=== PATIENT | male | born 1950 | race Caucasian/White ===

== ENCOUNTER 2017-11-21 00:55 | Inpatient (IN) | payer MEDICARE ==
[2017-11-21] MEDS ORDERED: NITROGLYCERIN SL TABS 0.4 MG TAB SUBLINGUAL PRN (03:33)
--- NOTE | 2017-11-21 03:41 | ED ---
Syncope HPI - General Chief Complaint: Recheck/Abnormal Lab/Rx Stated Complaint: Chest pain Time Seen by Provider: 11/21/17 00:59 Source: patient Mode of arrival: EMS Limitations: no limitations - History of Present Illness Initial Comments: This patient is a 67-year-old man who was transferred here to be admitted for syncope workup. The patient had been seen at [facility]. He states that he had gone there to be seen for a constellation of symptoms. Things started about 4 days ago now with congestion, cough, and occasional sputum production. He then also had some nausea and was not taking his much to drink as his usual. Today he was not feeling any better and in fact he was lightheaded and had 3 episodes in which she passed out. The patient has not had chest pain. When the patient went to the other hospital he was initially found to be tachycardic. MD Complaint: loss of consciousness Onset/Timin -: days(s) Prodromal Symptoms: lightheaded Injuries Sustained Associated with Event: None Current Symptoms: back to baseline Treatments Prior to Arrival: other - Related Data Home Medications Medication Instructions Recorded Confirmed No Known Home Medications 11/21/17 11/21/17 Allergies Allergy/AdvReac Type Severity Reaction Status Date / Time No Known Allergies Allergy Verified 11/21/17 01:11 Review of Systems ROS Statement: Those systems with pertinent positive or pertinent negative responses have been documented in the HPI. ROS Other: All systems not noted in ROS Statement are negative. Constitutional: Reports: weakness (Generalized). Denies: fever, chills Respiratory: Reports: cough, dyspnea Cardiovascular: Reports: syncope. Denies: chest pain, palpitations, orthopnea, edema Gastrointestinal: Denies: abdominal pain, vomiting, diarrhea Genitourinary: Denies: dysuria, hematuria Musculoskeletal: Denies: back pain Skin: Denies: rash Neurological: Denies: headache, weakness, numbness Past Medical History Past Medical History: Hyperlipidemia, Hypertension, Syncope Additional Past Medical History / Comment(s): diverticulitis History of Any Multi-Drug Resistant Organisms: None Reported Past Surgical History: Bowel Resection Past Psychological History: No Psychological Hx Reported Smoking Status: Never smoker Past Alcohol Use History: None Reported Past Drug Use History: None Reported General Exam Limitations: no limitations General appearance: alert, in no apparent distress Head exam: Present: atraumatic, normocephalic Eye exam: Present: normal appearance. Absent: scleral icterus, conjunctival injection ENT exam: Present: mucous membranes dry Neck exam: Present: normal inspection Respiratory exam: Present: normal lung sounds bilaterally. Absent: respiratory distress, wheezes, rales, rhonchi, stridor Cardiovascular Exam: Present: regular rate, normal rhythm, normal heart sounds. Absent: systolic murmur, diastolic murmur, rubs, gallop GI/Abdominal exam: Present: soft. Absent: distended, tenderness, guarding, rebound, mass Extremities exam: Present: normal inspection, normal capillary refill. Absent: pedal edema, calf tenderness Back exam: Present: normal inspection. Absent: CVA tenderness (R), CVA tenderness (L) Neurological exam: Present: alert Skin exam: Present: warm, dry, intact, normal color. Absent: rash Course Vital Signs 11/21/17 11/21/17 11/21/17 01:06 01:14 02:47 Temperature 98.6 F Pulse Rate 105 H 98 Pulse Rate [ 105 H Conference Planner ] Respiratory 17 19 18 Rate Blood Pressure 140/76 153/106 O2 Sat by Pulse 96 95 Oximetry EKG Findings - EKG Results: EKG: interpreted by ERMD, sinus rhythm, normal axis EKG shows: tachycardia (Rate approximately 105 bpm) - Blocks, [place], Hypertrophy, ST Abn: AV and intraventricular conduction: right bundle branch block (fixed/ intermittent, complete/incomplete) - [place], Pacemaker, Normal: Myocardial infarction: inferior [place] (old age indeterminate) Disposition Referrals: None,Stated [Primary Care Provider] - 1-2 days
[2017-11-21 04:54] LABS: Creatine Kinase MB 1.6 ng/mL (0.0-2.4)
[2017-11-21] MEDS ORDERED: LABETALOL SYRINGE 5 MG/ML IVP STA (05:01)
[2017-11-21] MEDS ORDERED: LABETALOL 5 MG/ML VIAL MDV IVP STA (05:04)
[2017-11-21 05:10] LABS: Troponin I 0.063 ng/mL (0.000-0.034)
[2017-11-21 06:09] VITALS: BMI 23.5
[2017-11-21 06:35] LABS: Appearance,Urine Clear (Clear); Bilirubin,Urine Negative (Negative); Blood,Urine Large (Negative); Color,Urine Yellow; Glucose,Urine (UA) Negative (Negative); Hyaline Casts,Urine 11 /lpf (0-2); Ketones,Urine Negative (Negative); Leukocyte Esterase,Urine Negative (Negative); Mucus,Urine Rare /hpf; Nitrite,Urine Negative (Negative); Protein,Urine 1+ (Negative); RBC,Urine >182 /hpf (0-5); Specific Gravity,Urine 1.018 (1.001-1.035); Urobilinogen,Urine <2.0 mg/dL (<2.0); WBC,Urine <1 /hpf (0-5)
[2017-11-21 10:50] LABS: Creatine Kinase MB 1.8 ng/mL (0.0-2.4)
[2017-11-21 10:54] LABS: Troponin I 0.057 ng/mL (0.000-0.034)
[2017-11-21] MEDS: SODIUM CHLORIDE 0.9% 1,000 ML IV SCH ×2 (11:22→19:48)
--- NOTE | 2017-11-21 11:57 | HP ---
HISTORY AND PHYSICAL CHIEF COMPLAINT: Syncopal episode. HISTORY OF PRESENT ILLNESS: This is the first admission for this 67-year-old white male who has been in fairly good health otherwise. He apparently passed out 3 different times and was transferred in from an outside hospital. He is experiencing slight discomfort in the chest, shortness of breath, and he was diaphoretic. He has had no history of heart disease. He has been told that his blood pressure is elevated, but he does not treat. He has also been told he is borderline diabetic. He has had no diarrhea, hematochezia, etc. REVIEW OF SYSTEMS: Otherwise unremarkable and noncontributory. Past medical history, family history, personal and social histories reveal he is not on any medication and not allergic to any. Surgically, he has been treated for diverticulitis. He does not smoke. PHYSICAL EXAM: Blood pressure 156/90 with a pulse of 94, respirations of 35. He is afebrile. GENERAL: He appeared to be well developed, well nourished, no acute distress. Skin color is normal, skin is warm and dry. Lymph nodes not enlarged. Neck veins are not distended. Chest is clear to auscultation and percussion. Cardiac exam is normal. Carotids are normal. Abdomen is soft, nontender and extremities are normal. Neurologically, he is intact. IMPRESSION: 1. Syncopal episodes. 2. History of hypertension. 3. Rule out diabetes. PLAN: 1. Bed rest. 2. IV fluids. 3. Echocardiogram. 4. Hemoglobin A1c. 5. Consult with Cardiology. MMODL / IJN: [id number] /
[2017-11-21] MEDS: METOPROLOL TARTRATE 25 MG TAB PO SCH ×2 (12:41→19:47)
[2017-11-21] MEDS ORDERED: HEPARIN SODIUM,PORCINE 5,000 UNIT/ML 1 ML VIAL IV ONE (13:42)
[2017-11-21] MEDS ORDERED: HEPARIN SODIUM,PORCINE 5,000 UNIT/ML 1 ML VIAL IV PRN ×2 (13:42→20:08)
[2017-11-21] MEDS ORDERED: HEPARIN SOD,PORK IN 0.45% NACL 25,000 UNIT in 0.45% NACL 1 500ML.BAG IV SCH (13:45)
[2017-11-21 13:49] LABS: Basophils % (A) 0 %; Eosinophils # (A) 0.1 k/uL (0-0.7); Eosinophils % (A) 1 %; HCT 41.3 % (39.0-53.0); Hypochromasia Slight; Lymphocytes # (A) 1.4 k/uL (1.0-4.8); Lymphocytes % (A) 20 %; MCH 27.3 pg (25.0-35.0); MCHC 31.5 g/dL (31.0-37.0); MCV 86.7 fL (80.0-100.0); Mean Platelet Volume 8.4; Monocytes # (A) 0.6 k/uL (0-1.0); Monocytes % (A) 9 %; Neutrophils # (A) 4.6 k/uL (1.3-7.7); Neutrophils % (A) 67 %; Platelet Count 177 k/uL (150-450); RBC 4.77 m/uL (4.30-5.90); RDW 13.6 % (11.5-15.5); WBC 6.8 k/uL (3.8-10.6)
[2017-11-21 14:02] LABS: INR 1.1 (<1.2); Partial Thromboplastin Time 23.3 sec (22.0-30.0); Prothrombin Time 10.9 sec (9.0-12.0)
[2017-11-21 14:09] LABS: Calcium 8.7 mg/dL (8.4-10.2); Potassium 4.3 mmol/L (3.5-5.1)
[2017-11-21 14:12] LABS: D-Dimer 11.92 mg/L FEU (<0.60)
--- NOTE | 2017-11-21 14:39 | CONS ---
CONSULTATION Mr. Ravi Theodore is a gentleman who was transferred from [facility] after presenting there with syncope. This gentleman has not seen a physician within a long time. Apparently for the last 3-4 days he has been having nausea, vomiting, has emesis and several episodes of retching. He came into the hospital after having passed out about 3 times. These passing-out spells happened when he was having vomiting or retching and this seems to have been a precipitating factor. EMS while they were transporting him to the emergency room at [facility], he complained of sharp pains in the chest. The pain seemed to be more or less again related to his vomiting and retching. The pain is all gone. He is comfortable, resting. His troponin profile does not suggest any myocardial injury. His emesis and vomiting has also resolved. He was quite dehydrated. He received quite a bit of IV fluid. This morning, he still has orthostatic changes. He does not have any chest discomfort. He feels slightly dizzy and lightheaded when he stands up and there is a blood pressure drop between supine and standing of more than 30 mmHg. He has no other symptoms at this time. PAST MEDICAL HISTORY: Unavailable and unremarkable. Patient has not seen a physician in a long time. He does not take any medications. Patient had some workup with a CT of the spine and head which showed no significant abnormalities. He also had a CT of the chest which revealed some segmental atelectasis, but no significant problems were noted.CT was done without contrast. EKG reveals a sinus mechanism with a right bundle branch block pattern and repolarization abnormality. No acute changes were detected. PHYSICAL EXAMINATION: Blood pressure is 140/70, when standing pressure is about 100 systolic. HEENT: Unremarkable. Fundus was not examined by me. NECK: Supple. There is JVD of 1 cm. There is no carotid bruit. Heart exam reveals S1, S2 heard normally with a short systolic murmur at the base. Lungs revealed diminished air entry. Abdomen is soft. Lower extremities reveal diminished pulses. No edema. Central nervous system grossly no focal deficits. EKG revealed a sinus mechanism with a right bundle branch block pattern and Q- waves in the inferior leads. Possibility of prior inferior NH cannot be excluded. Nonspecific ST changes. Laboratory data does not reveal any significant troponin elevation. IMPRESSION: 1. Dehydration and syncope related to volume depletion and associated with some vasovagal episode with vomiting. Pt was not sedentary but Pul Embolism cannot be excluded. 2. Abnormal EKG, cannot exclude old myocardial infarction. 3. Orthostatic hypotension with dehydration. RECOMMENDATIONS: I am recommending that we will hydrate him, reduce the aspirin to 81 mg daily, perform another EKG in the morning and echocardiogram and based on clinical course, I will make further recommendations. We will add a very small dose of beta nathan. His syncopal spell or near syncopal spell appears to be more or less related to dehydration or vasovagal type picture, but will do D-Dimer and Echo to R/o pul. Embolism. I will initiate anticoagulation. Thank you very much for the consult. MMODL / IJN: [id number] / APPLE
--- NOTE | 2017-11-21 18:54 | CT ---
EXAMINATION TYPE: CT chest angio for PE with contrast and with 3-D reconstruction renderings DATE OF EXAM: 11/21/2017 COMPARISON: None. HISTORY: shortness of breath CT DLP: 667 mGycm Automated exposure control for dose reduction was used. CONTRAST: CT Chest for pulmonary embolism performed with with IV Contrast, patient injected with 80 m L of Isovue 370. 3-D reconstructions. FINDINGS: There are large bilateral filling defects throughout the lobar and segmental branches of th e right and left pulmonary artery, with filling defects seen within the distal main right pulmonary a rtery and the distal left main pulmonary artery. There is also mild prominence of the right ventricle , suggesting the possibility of right heart strain. Results being called to patient's nurse at 6:50 P M - in order to ensure intact communications. There is mild cardiomegaly and there are coronary calcifications. No pericardial effusion. The aorta shows nonaneurysmal atherosclerotic changes. The lungs are clear. Pleural spaces are negative. Skeletal structures and visualized extrathoracic soft tissues are unremarkable. IMPRESSION: LARGE BILATERAL PULMONARY EMBOLI WITH EVIDENCE SUGGESTING THE POSSIBILITY OF RIGHT HEART STRAIN.
[2017-11-21 20:57] LABS: Basophils % (A) 0 %; Eosinophils % (A) 1 %; HCT 40.1 % (39.0-53.0); HGB 12.4 gm/dL (13.0-17.5); Hypochromasia Slight; Lymphocytes # (A) 1.2 k/uL (1.0-4.8); Lymphocytes % (A) 18 %; MCH 26.8 pg (25.0-35.0); MCV 86.6 fL (80.0-100.0); Mean Platelet Volume 7.8; Monocytes # (A) 0.6 k/uL (0-1.0); Monocytes % (A) 9 %; Neutrophils # (A) 4.6 k/uL (1.3-7.7); Neutrophils % (A) 70 %; Platelet Count 183 k/uL (150-450); RBC 4.63 m/uL (4.30-5.90); RDW 13.5 % (11.5-15.5); WBC 6.5 k/uL (3.8-10.6)
[2017-11-21] MEDS: HEPARIN SOD,PORK IN 0.45% NACL 25,000 UNIT in 0.45% NACL 1 500ML.BAG IV SCH (21:05)
[2017-11-21 21:07] LABS: INR 1.1 (<1.2); Partial Thromboplastin Time 28.9 sec (22.0-30.0); Prothrombin Time 10.8 sec (9.0-12.0)
[2017-11-22 03:23] LABS: Basophils % (A) 0 %; Eosinophils # (A) 0.1 k/uL (0-0.7); Eosinophils % (A) 1 %; HCT 39.2 % (39.0-53.0); HGB 12.2 gm/dL (13.0-17.5); Hypochromasia Slight; Lymphocytes % (A) 27 %; MCH 27.2 pg (25.0-35.0); MCHC 31.1 g/dL (31.0-37.0); MCV 87.5 fL (80.0-100.0); Mean Platelet Volume 7.5; Monocytes # (A) 0.6 k/uL (0-1.0); Monocytes % (A) 8 %; Neutrophils # (A) 4.5 k/uL (1.3-7.7); Neutrophils % (A) 61 %; Platelet Count 180 k/uL (150-450); RBC 4.48 m/uL (4.30-5.90); RDW 13.5 % (11.5-15.5); WBC 7.3 k/uL (3.8-10.6)
[2017-11-22] MEDS: LABETALOL 200 MG TAB PO SCH ×3 (04:29→21:47)
[2017-11-22 05:17] LABS: Cholesterol 152 mg/dL (<200); HDL Cholesterol 29 mg/dL (40-60); LDL Cholesterol,Calculated 100 mg/dL (0-99); Triglycerides 115 mg/dL (<150)
[2017-11-22] MEDS: SODIUM CHLORIDE 0.9% 1,000 ML IV SCH ×3 (06:16→21:48)
[2017-11-22] MEDS: ASPIRIN 81 MG PO SCH (08:57)
[2017-11-22] MEDS ORDERED: ASPIRIN 325 MG TAB PO SCH (09:00)
[2017-11-22 10:26] LABS: Calcium 8.6 mg/dL (8.4-10.2); Potassium 4.3 mmol/L (3.5-5.1)
--- NOTE | 2017-11-22 13:18 | US ---
EXAMINATION TYPE: US venous doppler duplex LE DATE OF EXAM: 11/22/2017 1:05 PM COMPARISON: NONE CLINICAL HISTORY: pulmonary embolism. no leg symptoms, on Heparin SIDE PERFORMED: Bilateral TECHNIQUE: The lower extremity deep venous system is examined utilizing real time linear array sonog aurelia with graded compression, doppler sonography and color-flow sonography. VESSELS IMAGED: External Iliac Vein (EIV) Common Femoral Vein Deep Femoral Vein Greater Saphenous Vein * Femoral Vein Popliteal Vein Small Saphenous Vein * Proximal Calf Veins (* superficial vessels) Right Leg: Appears negative for DVT Left Leg: Internal echoes seen at dist FV and prx calf veins with no compressibility Grayscale, color doppler, spectral doppler imaging performed of the deep veins of the bilateral lower extremities. There is normal flow, compressibility, vascular waveforms in the right lower extremity . IMPRESSION: No ultrasound evidence for acute DVT in the right lower extremity. Acute thrombus suspec fish left lower extremity beginning in the distal superficial femoral vein extending through popliteal vein towards end of study into proximal calf veins.
--- NOTE | 2017-11-22 15:10 | PN ---
PROGRESS NOTE Mr. Theodore was seen by me yesterday and I recommended a D-dimer and echocardiogram. These suggested pulmonary embolism which was confirmed on CT angio. He is hemodynamically stable. There is no right ventricular enlargement on echo. We will continue IV heparin aggressively and also initiate oral Coumadin. We will do a venous Doppler today. Patient remained stable today. His JVD is elevated. S1, S2 heard normally. Lungs are clear. Abdomen and lower extremity exam is unchanged. Plan is to continue intravenous heparin, bedrest, venous Doppler, same medications and also initiate oral anticoagulation. MMODL / IJN: [id number] /
[2017-11-22] MEDS: HEPARIN SOD,PORK IN 0.45% NACL 25,000 UNIT in 0.45% NACL 1 500ML.BAG IV SCH (17:31)
[2017-11-22] MEDS ORDERED: WARFARIN 10 MG TAB PO ONE (18:00)
--- NOTE | 2017-11-22 18:28 | PN ---
PROGRESS NOTE CHIEF COMPLAINT: Syncopal events. HISTORY OF PRESENT ILLNESS: This gentleman was found to have several large bilateral pulmonary emboli for which he is on high-dose heparin now. He does feel short of breath when he gets up and about, even though he is hemodynamically stable. Because of the dyspnea, we will not discharge him today. He states when he got up this morning, he passed out again. This was not noted by the nurses. PHYSICAL EXAM: Chest is clear. Cardiac is normal. Abdomen is soft, nontender. IMPRESSION: 1. Status post pulmonary emboli. 2. Syncope. PLAN: Continue on heparin until his respiratory function improves and then he will be sent home on a novel anticoagulant. MMODL / IJN: [id number] /
[2017-11-23] MEDS: HEPARIN SOD,PORK IN 0.45% NACL 25,000 UNIT in 0.45% NACL 1 500ML.BAG IV SCH ×2 (06:28→20:21)
[2017-11-23 06:51] LABS: Basophils % (A) 0 %; Eosinophils # (A) 0.1 k/uL (0-0.7); Eosinophils % (A) 2 %; HCT 35.7 % (39.0-53.0); HGB 11.1 gm/dL (13.0-17.5); Lymphocytes # (A) 1.7 k/uL (1.0-4.8); Lymphocytes % (A) 29 %; MCH 26.7 pg (25.0-35.0); MCV 86.1 fL (80.0-100.0); Mean Platelet Volume 7.8; Monocytes # (A) 0.4 k/uL (0-1.0); Monocytes % (A) 6 %; Neutrophils # (A) 3.6 k/uL (1.3-7.7); Neutrophils % (A) 61 %; Platelet Count 161 k/uL (150-450); RBC 4.15 m/uL (4.30-5.90); RDW 13.6 % (11.5-15.5); WBC 5.9 k/uL (3.8-10.6)
[2017-11-23 06:58] LABS: INR 1.2 (<1.2); Partial Thromboplastin Time 67.8 sec (22.0-30.0); Prothrombin Time 11.2 sec (9.0-12.0)
[2017-11-23] MEDS: ASPIRIN 81 MG PO SCH (08:40)
[2017-11-23] MEDS: LABETALOL 200 MG TAB PO SCH ×2 (08:40→20:20)
[2017-11-23] MEDS: SODIUM CHLORIDE 0.9% 1,000 ML IV SCH ×2 (08:41→20:21)
--- NOTE | 2017-11-23 12:32 | PN ---
PROGRESS NOTE Mr. Theodore presented with syncope, went on to have evidence of pulmonary embolism. He is on anticoagulation. Coumadin has been started. PT, INR is still subtherapeutic. Will continue IV heparin at high dose. He is feeling better, has no further syncopal or near syncopal symptoms. Vital signs are stable. Oxygenation is good. S1-S2 heard normally, short systolic murmur noted. JVD is evident. Lungs are clear. Abdomen and lower extremity exam unchanged. Plan is to continue IV heparin and Coumadin and see how he does. He has evidence of DVT as well. MMODL / IJN: [id number] /
[2017-11-23] MEDS ORDERED: WARFARIN 10 MG TAB PO ONE (18:00)
--- NOTE | 2017-11-23 22:14 | PN ---
PROGRESS NOTE CHIEF COMPLAINT: Pulmonary emboli. HISTORY OF PRESENT ILLNESS: This gentleman is doing fairly well. He is still that short of breath. He is having no pain. PHYSICAL EXAM: Breath sounds are heard on both sides and cardiac exam is normal. The abdomen is soft, nontender. IMPRESSION: Status post pulmonary emboli. PLAN: Increase activity and he can be discharged once his shortness of breath is resolved. MMODL / IJN: [id number] /
[2017-11-24 07:10] LABS: Basophils % (A) 0 %; Eosinophils # (A) 0.2 k/uL (0-0.7); Eosinophils % (A) 3 %; HCT 35.6 % (39.0-53.0); HGB 11.7 gm/dL (13.0-17.5); Lymphocytes # (A) 1.4 k/uL (1.0-4.8); Lymphocytes % (A) 25 %; MCH 28.3 pg (25.0-35.0); MCV 85.8 fL (80.0-100.0); Mean Platelet Volume 7.6; Monocytes # (A) 0.3 k/uL (0-1.0); Monocytes % (A) 6 %; Neutrophils # (A) 3.8 k/uL (1.3-7.7); Neutrophils % (A) 64 %; Platelet Count 173 k/uL (150-450); RBC 4.15 m/uL (4.30-5.90); RDW 13.7 % (11.5-15.5); WBC 5.9 k/uL (3.8-10.6)
[2017-11-24 07:18] LABS: INR 1.6 (<1.2); Partial Thromboplastin Time 53.3 sec (22.0-30.0); Prothrombin Time 14.7 sec (9.0-12.0)
[2017-11-24] MEDS: LABETALOL 200 MG TAB PO SCH ×2 (07:30→19:56)
[2017-11-24] MEDS: ASPIRIN 81 MG PO SCH (07:30)
[2017-11-24] MEDS: SODIUM CHLORIDE 0.9% 1,000 ML IV SCH ×3 (07:30→20:01)
[2017-11-24] MEDS: HEPARIN SOD,PORK IN 0.45% NACL 25,000 UNIT in 0.45% NACL 1 500ML.BAG IV SCH (11:01)
--- NOTE | 2017-11-24 13:19 | PN ---
PROGRESS NOTE CHIEF COMPLAINT: Shortness of breath and syncope. HISTORY OF PRESENT ILLNESS: This gentleman is still a little bit short of breath. He is also having trouble with nasal congestion. He is afebrile. PHYSICAL EXAM: Vital signs are normal. Chest demonstrates rhonchi, rales and wheezing throughout. Cardiac exam is normal. IMPRESSION: 1. Status post pulmonary emboli with shortness of breath. 2. Nasal congestion. PLAN: No change in the program and may be necessary to repeat his chest x-ray if he continues to have difficulty with shortness of breath. MMODL / IJN: [id number] /
[2017-11-24] MEDS: amLODIPine 5 MG TAB PO SCH (13:20)
[2017-11-24] MEDS ORDERED: diphenhydrAMINE 25 MG CAP PO PRN (17:03)
[2017-11-24] MEDS ORDERED: WARFARIN 7.5 MG TAB PO ONE (18:00)
--- NOTE | 2017-11-24 18:07 | PN ---
PROGRESS NOTE Mr. Theodore is a patient with pulmonary embolism and he has received 2 doses of Coumadin. INR is 1.6. I am recommending 7.5 mg of Coumadin today. Remains in sinus rhythm, status post pulmonary embolism, being anticoagulated on IV heparin as well. Vital signs stable. JVD is evident. S1-S2 heard normally. Lungs reveal decent air entry. Abdomen and lower extremity exam is unchanged. Plan is to continue IV heparin and Coumadin and await therapeutic range of PT/INR. He will check a PT/INR in a.m. MMODL / IJN: [id number] /
[2017-11-25 06:45] LABS: Basophils % (A) 0 %; Eosinophils # (A) 0.2 k/uL (0-0.7); Eosinophils % (A) 3 %; HCT 34.9 % (39.0-53.0); HGB 11.3 gm/dL (13.0-17.5); Lymphocytes # (A) 1.7 k/uL (1.0-4.8); Lymphocytes % (A) 30 %; MCH 27.8 pg (25.0-35.0); MCHC 32.5 g/dL (31.0-37.0); MCV 85.5 fL (80.0-100.0); Mean Platelet Volume 8.3; Monocytes # (A) 0.3 k/uL (0-1.0); Monocytes % (A) 6 %; Neutrophils # (A) 3.3 k/uL (1.3-7.7); Neutrophils % (A) 58 %; Platelet Count 187 k/uL (150-450); RBC 4.08 m/uL (4.30-5.90); RDW 13.8 % (11.5-15.5); WBC 5.6 k/uL (3.8-10.6)
[2017-11-25 06:58] LABS: INR 2.5 (<1.2); Partial Thromboplastin Time 60.9 sec (22.0-30.0); Prothrombin Time 22.6 sec (9.0-12.0)
[2017-11-25] MEDS: HEPARIN SOD,PORK IN 0.45% NACL 25,000 UNIT in 0.45% NACL 1 500ML.BAG IV SCH (07:50)
[2017-11-25] MEDS: LABETALOL 200 MG TAB PO SCH (07:51)
[2017-11-25] MEDS: amLODIPine 5 MG TAB PO SCH (07:51)
[2017-11-25] MEDS: ASPIRIN 81 MG PO SCH (07:51)
[2017-11-25 12:37] LABS: Magnesium 1.9 mg/dL (1.6-2.3); Potassium 4.2 mmol/L (3.5-5.1)
[2017-11-25] MEDS: METOPROLOL TARTRATE 50 MG TAB PO SCH (13:05)
[2017-11-25] MEDS: LOSARTAN 50 MG TAB PO SCH (13:05)
--- NOTE | 2017-11-25 15:38 | PN ---
PROGRESS NOTE Mr. Theodore is a patient who came in with syncope, has a pulmonary embolism. He is being anticoagulated. Clinically he is doing better. Blood pressure control is being optimized. I am recommending that we add losartan and switch him from labetalol to metoprolol. He had a short run of wide QRS tachycardia. We will check electrolytes in the form of magnesium and potassium levels as well. His PT/INR is therapeutic at 2.5. We will stop the IV heparin, keep him at least for 24 hours more, given Coumadin 5 mg today. Physical exam revealed blood pressure 158/84, pulse rate is about 17. JVD 1 cm. No carotid bruit. S1, S2 heard normally. Short systolic murmur noted. Lungs are clear. Abdomen and lower extremity exam unchanged. Plan is to continue current medications, optimize blood pressure control as indicated above. Continue Coumadin and check PT/INR tomorrow. MMODL / IJN: [id number] /
[2017-11-25] MEDS: SODIUM CHLORIDE 0.9% 1,000 ML IV SCH (17:05)
[2017-11-25] MEDS ORDERED: WARFARIN 2.5 MG TAB PO ONE (18:00)
[2017-11-25] MEDS ORDERED: WARFARIN 5 MG TAB PO ONE (18:00)
--- NOTE | 2017-11-25 18:56 | PN ---
PROGRESS NOTE CHIEF COMPLAINT: Shortness of breath following pulmonary emboli. HISTORY OF PRESENT ILLNESS: This gentleman is doing slightly better. Breathing is improving somewhat. PHYSICAL EXAM: Physical exam is unchanged with occasional rales at the bases. Cardiac exam is normal. IMPRESSION: Status post pulmonary emboli and syncope. PLAN: Slowly progress activity and he can probably go home in the next day or two. MMODL / IJN: [id number] /
[2017-11-26] MEDS: SODIUM CHLORIDE 0.9% 1,000 ML IV SCH ×2 (02:58→13:10)
[2017-11-26] MEDS: amLODIPine 5 MG TAB PO SCH (06:43)
[2017-11-26 07:44] LABS: Basophils % (A) 0 %; Eosinophils # (A) 0.2 k/uL (0-0.7); Eosinophils % (A) 3 %; HCT 37.7 % (39.0-53.0); HGB 11.8 gm/dL (13.0-17.5); Lymphocytes # (A) 1.4 k/uL (1.0-4.8); Lymphocytes % (A) 24 %; MCH 27.1 pg (25.0-35.0); MCHC 31.4 g/dL (31.0-37.0); MCV 86.5 fL (80.0-100.0); Mean Platelet Volume 7.3; Monocytes # (A) 0.4 k/uL (0-1.0); Monocytes % (A) 6 %; Neutrophils # (A) 3.7 k/uL (1.3-7.7); Neutrophils % (A) 65 %; Platelet Count 220 k/uL (150-450); RBC 4.36 m/uL (4.30-5.90); RDW 13.5 % (11.5-15.5); WBC 5.8 k/uL (3.8-10.6)
[2017-11-26 07:47] LABS: INR 2.9 (<1.2); Prothrombin Time 25.9 sec (9.0-12.0)
[2017-11-26] MEDS: LOSARTAN 50 MG TAB PO SCH (08:47)
[2017-11-26] MEDS: ASPIRIN 81 MG PO SCH (08:47)
[2017-11-26] MEDS: METOPROLOL TARTRATE 50 MG TAB PO SCH (08:47)
[2017-11-26] MEDS ORDERED: LOSARTAN 50 MG TAB PO STA (11:10)
[2017-11-26] MEDS ORDERED: amLODIPine 10 MG TAB PO STA (11:10)
[2017-11-26] MEDS ORDERED: METOPROLOL SUCCINATE (ER) 100 MG TAB.ER.24H PO STA (11:11)
--- NOTE | 2017-11-26 17:09 | PN ---
PROGRESS NOTE Mr. Theodore came in with acute pulmonary embolism. He also has hypertension. Blood pressure control has been optimized. His PT/INR is 2.6. I am recommending he can be discharged on 2.5 and 5 mg Coumadin alternating and blood pressure medications in the form of metoprolol tartrate, Norvasc and losartan. He will follow up with his primary care physician, Dr. Murphy and will have a PT/INR checked through Dr. Murphy. I discussed this with the patient at length and I will see him as needed from a cardiac standpoint. He is feeling well today. Ambulating in the hallways. Vital signs stable. JVD is 1 cm. No carotid bruit. S1-S2 heard normally. Lungs are clear. Abdomen and lower extremity exam otherwise is unchanged. MMODL / IJN: [id number] /
[2017-11-26] MEDS ORDERED: WARFARIN 2.5 MG TAB PO ONE (18:00)
[2017-11-26] MEDS ORDERED: amLODIPine 5 MG TAB PO SCH (21:00)
[2017-11-27 06:30] LABS: Basophils % (A) 1 %; Eosinophils # (A) 0.3 k/uL (0-0.7); Eosinophils % (A) 4 %; HCT 41.5 % (39.0-53.0); INR 2.4 (<1.2); Lymphocytes # (A) 1.6 k/uL (1.0-4.8); Lymphocytes % (A) 23 %; MCH 26.9 pg (25.0-35.0); MCHC 31.2 g/dL (31.0-37.0); Mean Platelet Volume 7.1; Monocytes # (A) 0.4 k/uL (0-1.0); Monocytes % (A) 5 %; Neutrophils # (A) 4.3 k/uL (1.3-7.7); Neutrophils % (A) 65 %; Platelet Count 257 k/uL (150-450); Prothrombin Time 21.3 sec (9.0-12.0); RBC 4.82 m/uL (4.30-5.90); RDW 13.6 % (11.5-15.5); WBC 6.6 k/uL (3.8-10.6)
[2017-11-27] MEDS ORDERED: LOSARTAN 50 MG TAB PO SCH (09:00)
[2017-11-27] MEDS ORDERED: METOPROLOL TARTRATE 50 MG TAB PO SCH (09:00)
[2017-11-27 09:22] VITALS: BP 152/90; PULSE 76; RESP 18; TEMP 97.4
[2017-11-27] MEDS: ASPIRIN 81 MG PO SCH (09:29)
--- NOTE | 2017-11-27 12:04 | ECHOF ---
Referral Reason:syncope MEASUREMENTS -------- HEIGHT: 188.0 cm WEIGHT: 82.6 kg BP: 159/81 RVIDd: 3.2 cm (< 3.3) IVSd: 1.1 cm (0.6 - 1.1) LVIDd: 4.3 cm (3.9 - 5.3) LVPWd: 1.1 cm (0.6 - 1.1) IVSs: 1.6 cm LVIDs: 3.1 cm LVPWs: 1.6 cm LAESV Index (A-L): 15.42 ml/m Ao Diam: 3.9 cm (2.0 - 3.7) AV Cusp: 2.1 cm (1.5 - 2.6) LA Diam: 3.2 cm (2.7 - 3.8) MV E William: 1.12 m/s MV DecT: 103 ms MV A William: 0.01 m/s MV E/A Ratio: 154.55 RAP: 5.00 mmHg RVSP: 57.65 mmHg FINDINGS -------- Atrial fibrillation. This was a technically adequate study. The left ventricular size is normal. There is borderline concentric left ventricular hypertrophy. There is mild global hypokinesis of LV . Overall left ventricular systolic function is mildly impa ired with, an EF between 45 - 50 %. The right ventricle is normal in size and function. Normal LA size by volume 22+/-6 ml/m2. RA appears enlarged. Aortic valve is trileaflet and is mildly thickened. Trace amount of aortic regurgitation. There is no evidence of aortic stenosis. The mitral valve leaflets are mildly thickened. There is trace to mild mitral regurgitation. Mild tricuspid regurgitation present. There is mild to moderate pulmonary hypertension. The right ventricular systolic pressure, as measured by Doppler, is 57.65mmHg. Trace/mild (physiologic) pulmonic regurgitation. The aortic root size is normal. Normal inferior vena cava with normal inspiratory collapse consistent with estimated right atrial pre ssure of 5 mmHg. There is no pericardial effusion. CONCLUSIONS -------- 1. Atrial fibrillation. 2. This was a technically adequate study. 3. The left ventricular size is normal. 4. There is borderline concentric left ventricular hypertrophy. 5. There is mild global hypokinesis of LV . 6. Normal LA size by volume 22+/-6 ml/m2. 7. RA appears enlarged. 8. Aortic valve is trileaflet and is mildly thickened. 9. Trace amount of aortic regurgitation. 10. The mitral valve leaflets are mildly thickened. 11. There is trace to mild mitral regurgitation. 12. Mild tricuspid regurgitation present. 13. There is mild to moderate pulmonary hypertension. 14. The right ventricular systolic pressure, as measured by Doppler, is 57.65mmHg. 15. Trace/mild (physiologic) pulmonic regurgitation. 16. The aortic root size is normal. 17. There is no pericardial effusion. JAIL KEEPER: Cedric Deng RDCS
[2017-11-27] MEDS ORDERED: WARFARIN 5 MG TAB PO SCH (18:00)
--- NOTE | 2017-11-27 18:43 | PN ---
PROGRESS NOTE DATE OF SERVICE: 11/26/2017 CHIEF COMPLAINT: Pulmonary emboli. HISTORY OF PRESENT ILLNESS: This gentleman is doing well and could go home, but his blood pressure is up and out of control. REVIEW OF SYSTEMS: He feels fine. He has had no headaches, shortness of breath, chest pain, etc. PHYSICAL EXAMINATION: Chest is clear. Cardiac exam is normal. IMPRESSION: 1. Status post pulmonary emboli resulting in syncope. 2. Hypertension. PLAN: Increase the doses of his medications and hold up his discharge. MMODL / IJN: [id number] /
--- NOTE | 2017-11-27 20:19 | DS ---
DISCHARGE SUMMARY CHIEF COMPLAINT: Syncope, and shortness of breath. HISTORY OF PRESENT ILLNESS AND PHYSICAL EXAM: Details of this man's history and physical can be found in the initial workup. LABORATORY STUDIES: While he was in the hospital, he had laboratory studies, details of which can be found in the laboratory section of his chart. COURSE IN HOSPITAL: After admission, he was placed on bedrest, started on intravenous fluids and subsequently found to have bilateral pulmonary emboli. Anticoagulation was started. For cost reasons, he was treated with warfarin and his INR came into therapeutic range. His blood pressure started to rise and his antihypertensives were increased and blood pressure came down. It was felt he could go home on the . He will go home on usual diet and activity and be seen in several days. FINAL DIAGNOSES: 1. Syncope. 2. Pulmonary emboli. 3. Hypertension. OPERATIONS: None. CONSULTATION: None. He is improved. MMBERNARDL / INDERN: [id number] /
[2017-11-27] MEDS ORDERED: amLODIPine 5 MG TAB PO SCH (21:00)
[2017-11-28] MEDS ORDERED: WARFARIN 2.5 MG TAB PO SCH (18:00)
--- NOTE | 2017-11-29 09:56 | CDI ---
Last Revision, February 2017 Documentation Clarification Form Date: 11/29/17 From: Jamee Freddy Genesis Uriarte, [employer] Developer Hours-8:30 am & 5 pm Joseph Admit Date: 11/21/2017 3:33:00 AM Patient Name: Ravi Theodore Visit Number: [id number] Discharge Date: 11/27/17 ATTENTION: The Clinical Documentation Specialists (CDI) and [facility] Coding Staff appreciate your assistance in clarifying documentation. Please respond to the clarification below the line at the bottom and electronically sign. The CDI & [facility] Coding staff will review the response and follow-up if needed. Please note: Queries are made part of the Legal Health Record. If you have any questions, please contact the author of this message via ITS. Dr. PETER, Santos Hylton MD US venous doppler documents: Acute thrombus suspected left lower extremity beginning in the distal superficial femoral vein extending through popliteal monica towards end of study into proximal calf veins. No US evidence for acute DVT in the right lower extremity. History/Risk Factors: PE Treatment: IV Heparin Clinical significance of diagnostic testing and treatment CANNOT be assumed or coded without physician documentation of significance if any. Please clarify what abnormal laboratory signifies: Disease process, please specify Unable to determine Other, please specify Please continue to document in your progress notes and discharge summary in order to capture severity of illness and risk of mortality. Include clinical findings that support your diagnosis. MTDD
--- NOTE | 2017-12-02 21:42 | MISC ---
MISCELLANOUS REPORT QUERY: Unable to determine. MMODL / IJN: [id number] /
== END 2017-11-27 13:22 | disposition home or self-care (01) | DRG 176 ==
LOC: EC 00:55 → 6SEL 03:33
PROVIDERS: ADMIT Family Medicine; ATTEND Family Medicine
DX: I26.99 Other pulmonary embolism without acute cor pulmonale (principal); E78.5 Hyperlipidemia, unspecified; Z87.19 Personal history of other diseases of the digestive system; Z90.49 Acquired absence of other specified parts of digestive tract; I25.2 Old myocardial infarction; I10 Essential (primary) hypertension; R73.03 Prediabetes; E86.0 Dehydration; I45.10 Unspecified right bundle-branch block; I95.1 Orthostatic hypotension
CPT/HCPCS: 36415; 71275; 80048; 80061; 81001; 82272; 82550; 82553; 83735; 84484; 85025; 85379; 85610; 85730; 93306; 93970; 96374; 99285